=== PATIENT | female | born 1985 | race Caucasian/White ===

== ENCOUNTER 2016-07-10 10:24 | Outpatient (CLI) | payer BC | END 2016-07-10 10:25 | disposition home or self-care (01) | DX: E55.9 Vitamin D deficiency, unspecified (principal); R53.83 Other fatigue ==

== ENCOUNTER 2016-07-11 11:57 | Outpatient (CLI) | payer BC | END 2016-07-11 11:58 | disposition home or self-care (01) | DX: M53.3 Sacrococcygeal disorders, not elsewhere classified (principal) ==

== ENCOUNTER 2019-02-05 13:40 | Outpatient (CLI) | payer BC ==
--- NOTE | 2019-02-05 14:53 | Mammography Report ---
Reason: MASTODYNIA Procedure Date: 02/05/2019 Accession Number: [id number] / [id number] Procedure: ANDREIA - Diagnostic Dig Bilat CPT Code: FULL RESULT: EXAM: Diagnostic Dig Bilat with Noel DATE: 02/05/2019 2:39 PM CLINICAL HISTORY: Superior left breast pain. TECHNIQUE: (B) - Bilateral CC and MLO views were obtained. COMPARISON: None PARENCHYMAL PATTERN: (D) - The breasts demonstrate heterogeneously dense fibroglandular parenchyma bilaterally. FINDINGS: Special attention was given to the superior left breast which is unremarkable. There are no suspicious masses, calcifications, or areas of distortion. IMPRESSION: Negative examination. BI-RADS category 1. RECOMMENDATION: (ANNUAL) - Recommend routine annual screening mammography. BI-RADS CATEGORY: (1) - Negative. STANDARD QUALIFYING STATEMENTS: 1. This examination was not reviewed with the aid of Computer-Aided Detection (CAD). 2. A negative or benign imaging report should not preclude biopsy if clinically suspicious findings are present. 3. Dense breasts may obscure an underlying neoplasm. 4. This examination was reviewed with the aid of 3D breast imaging (tomosynthesis).
== END 2019-02-05 13:41 | disposition home or self-care (01) ==
LOC: DI 13:40
PROVIDERS: ATTEND Nurse Practitioner Family
DX: N64.4 Mastodynia (principal)
CPT/HCPCS: 77066

== ENCOUNTER 2020-09-06 09:13 | Outpatient (CLI) | payer OTHER ==
[2020-09-06 14:38] LABS: ALBUMIN 4.5 g/dL (3.2-5.5); ALBUMIN/GLOBULIN RATIO 1.5 (1.0-2.2); ALKALINE PHOSPHATASE 64 IU/L (42-121); ALT ALANINE AMINOTRANSFERASE 16 IU/L (10-60); AST ASPARTATE AMINOTRANSFERASE 21 IU/L (10-42); BILIRUBIN,TOTAL 0.7 mg/dL (0.2-1.0); BUN - BLOOD UREA NITROGEN 14 mg/dL (6-20); CALCIUM 9.3 mg/dL (8.5-10.3); CARBON DIOXIDE - CO2 27 mmol/L (21-32); CHLORIDE 108 mmol/L (101-111); CHOL/HDL RATIO 3.2 (<4.4); CHOLESTEROL 149 mg/dL; CREATININE 0.8 mg/dL (0.4-1.0); GFR - MDRD 81 (>89); GLUCOSE 89 mg/dL (70-100); HDL CHOLESTEROL 46 mg/dL; LDL CHOLESTEROL,CALCULATED 94 mg/dL; POTASSIUM 4.1 mmol/L (3.5-5.0); SODIUM 141 mmol/L (135-145); TOTAL PROTEIN 7.5 g/dL (6.7-8.2); TRIGLYCERIDES 43 mg/dL; VLDL CHOLESTEROL 9 mg/dL
[2020-09-06 14:50] LABS: BASOPHILS # (AUTO) 0.1 10^3/uL (0.0-0.1); BASOPHILS % (AUTO) 0.9 %; EOSINOPHILS # (AUTO) 0.1 10^3/uL (0.0-0.7); EOSINOPHILS % (AUTO) 1.4 %; HCT - HEMATOCRIT 44.6 % (37.0-47.0); HGB - HEMOGLOBIN 14.3 g/dL (12.0-16.0); LYMPHOCYTES % (AUTO) 36.1 %; MEAN CORPUSCULAR HEMOGLOBIN 27.9 pg (27.0-31.0); MEAN CORPUSCULAR HGB CONC 32.1 g/dL (32.0-36.0); MEAN CORPUSCULAR VOLUME 87.1 fL (81.0-99.0); MEAN PLATELET VOLUME 10.4 fL (7.9-10.8); MONOCYTES # (AUTO) 0.3 10^3/uL (0.0-1.0); MONOCYTES % (AUTO) 5.6 %; NEUTROPHILS # (AUTO) 3.1 10^3/uL (1.5-6.6); NEUTROPHILS % (AUTO) 55.8 %; PLT - PLATELET COUNT 248 10^3/uL (130-450); RED BLOOD COUNT 5.12 10^6/uL (4.20-5.40); WHITE BLOOD COUNT 5.5 x10^3/uL (4.8-10.8)
== END 2020-09-06 09:14 | disposition home or self-care (01) ==
LOC: LAB.S 09:13
PROVIDERS: ATTEND Nurse Practitioner Family
DX: Z00.00 Encounter for general adult medical examination without abnormal findings (principal); E55.9 Vitamin D deficiency, unspecified; E78.5 Hyperlipidemia, unspecified
CPT/HCPCS: 36415; 80053; 80061; 82306; 82728; 83721; 85025

== ENCOUNTER 2020-09-23 10:54 | Outpatient (CLI) | payer OTHER ==
--- NOTE | 2020-09-24 09:12 | Mammography Report ---
BILATERAL DIGITAL SCREENING MAMMOGRAM 3D/2D: 09/23/2020 CLINICAL: Routine screening. Comparison is made to exam dated: 02/05/2019 mammogram - [facility]. The tissue of both breasts is heterogeneously dense. This may lower the sensitivity of mammography. No significant masses, calcifications, or other findings are seen in either breast. There has been no significant interval change. IMPRESSION: NEGATIVE There is no mammographic evidence of malignancy. A 1 year screening mammogram is recommended. This exam was interpreted at Station ID: [id number]. NOTE: For mammograms, a report in lay terms will be sent to the patient. Approximately 15% of breast malignancies will not be visualized mammographically. In the management of a palpable breast mass, a negative mammogram must not discourage biopsy of a clinically suspicious lesion. Electronically Signed By: Umair Jules M.D. aty/penrad:09/23/2020 18:16:34 ACR BI-RADS Category 1: Negative 3341F PARENCHYMAL PATTERN: (D) - The breast(s) demonstrate(s) heterogeneously dense fibroglandular clemente banks. BI-RADS CATEGORY: (1) - 1 RECOMMENDATION: (ANNUAL) - Recommend routine annual screening mammography. [id number] 1 year screening LATERALITY: (B)
== END 2020-09-23 10:55 | disposition home or self-care (01) ==
LOC: DI 10:54
PROVIDERS: ATTEND Nurse Practitioner Family
DX: Z12.31 Encounter for screening mammogram for malignant neoplasm of breast (principal)

== ENCOUNTER 2021-09-21 12:33 | Outpatient (CLI) | payer OTHER ==
--- NOTE | 2021-09-21 14:49 | XRAY Report ---
PROCEDURE: Chest 2 View X-Ray INDICATIONS: DYSPNEA TECHNIQUE: 2 view(s) of the chest. COMPARISON: None. FINDINGS: Surgical changes and devices: None. Lungs and pleura: No pleural effusions or pneumothorax. Lungs are clear. Mediastinum: Mediastinal contours are normal. Heart size is normal. Bones and chest wall: No suspicious bony abnormalities. Soft tissues appear unremarkable. IMPRESSION: No acute cardiopulmonary abnormality. Normal chest x-ray. Reviewed by: Marcial Bateman on 09/21/2021 2:48 PM PDT Approved by: Marcial Bateman on 09/21/2021 2:48 PM PDT Station ID: [id number]
== END 2021-09-21 12:34 | disposition home or self-care (01) ==
LOC: DI.S 12:33
PROVIDERS: ATTEND Physician Assistant
DX: R06.00 Dyspnea, unspecified (principal)

== ENCOUNTER 2021-10-20 15:50 | Outpatient (CLI) | payer OTHER ==
--- NOTE | 2021-10-21 16:14 | Ultrasound Report ---
PROCEDURE: Retroperitoneal INDICATIONS: BACK PAIN WITH URINARY URGENCY TECHNIQUE: Real-time scanning was performed of the retroperitoneal organs, with image documentation. COMPARISON: None. FINDINGS: Kidneys: Kidneys are normal in size. Right kidney measures 10.2 cm long; left kidney measures 11.4 cm long. Right renal cortical thickness is 1.2 cm; left renal cortical thickness is 1.7 cm. No kendal d masses, hydronephrosis, or nephrolithiasis. Bladder: Pre-void bladder volume is 445 mL. Post-void residual is 7 mL. Pre-void images demonstrat e no intraluminal masses or stones. On pre-void images, bilateral ureteral jets are noted with color Doppler interrogation. (Of note, ureteral jets may not be detectable in up to 25% of cases due to i nsufficient differences in specific gravity between ureteral and bladder urine). Miscellaneous: No free abdominal fluid. IMPRESSION: Unremarkable exam. Reviewed by: Bharti Lindsay MD on 10/21/2021 4:12 PM PDT Approved by: Bharti Lindsay MD on 10/21/2021 4:12 PM PDT Station ID: [id number]
== END 2021-10-20 15:51 | disposition home or self-care (01) ==
LOC: DI 15:50
PROVIDERS: ATTEND Naturopath
DX: R31.9 Hematuria, unspecified (principal)

== ENCOUNTER 2022-08-19 04:38 | Outpatient (CLI) | payer OTHER | END 2022-08-19 23:59 | disposition critical access hospital (66) | LOC: EMS 04:38 | DX: M79.602 Pain in left arm (principal); M79.605 Pain in left leg; R53.1 Weakness | CPT/HCPCS: A0425; A0429 ==

== ENCOUNTER 2022-08-19 05:02 | Emergency (ER) | payer OTHER ==
[2022-08-19] MEDS ORDERED: SODIUM CHLORIDE 0.9% 1,000 ML IV STA (05:21)
--- OUTSIDE RECORDS SUMMARY | 2022-08-19 05:27 | EXTERNAL MEDICAL SUMMARY RPT | Continuity of Care Document ---
:1985 Author Organization [facility] Address [address] [place] [address] Phone Care Team Providers Name Role Phone Unavailable Unavailable Unavailable Kulwinder Carpenter Md Unavailable Unavailable Allergies and Intolerances date description facility type (no date) AMOXICILLIN [facility] [place] Encounters No information. Functional Status No information. Immunizations No information. Medications date description facility 2022-07-25 00:00 methylprednisolone [facility] 2022-07-24 00:00 doxycycline monohydrate [facility] 2022-07-24 00:00 doxycycline monohydrate [facility] 2022-07-25 00:00 methylprednisolone [facility] [place] 2022-07-25 00:00 methylprednisolone [facility] [place] 2022-07-24 00:00 doxycycline monohydrate [facility] [place] 2022-07-24 00:00 doxycycline monohydrate [facility] [place] 2022-07-25 00:00 methylprednisolone [facility] [place] Problems date description facility 2022-07-24 00:00 Maxillary sinusitis [facility] [place] 2022-07-24 00:00 Chronic maxillary sinusitis [facility] [place] Procedures date description facility 2022-07-24 00:00 Visit Code Hold [facility] [place] Results/Labs No information. Social History date description facility 2022-07-24 00:00 Never smoker [facility] [place] Vital Signs date measurement value units 2022-07-24 00:00 BMI 35.24 kg/m2 2022-07-24 00:00 BP_diastolic 72 mmHg 2022-07-24 00:00 BP_systolic 120 mmHg 2022-07-24 00:00 heart_rate 72 /min 2022-07-24 00:00 height_metric 157.48 cm 2022-07-24 00:00 height_standard 62 in 2022-07-24 00:00 temperature_metric 36.83 C 2022-07-24 00:00 temperature_standard 98.3 F 2022-07-24 00:00 weight_metric 87.09 kg 2022-07-24 00:00 weight_standard 192 lb
--- NOTE | 2022-08-19 05:37 | ED Physician Documentation ---
History of Present Illness - Stated complaint Stated Complaint: LEFT SIDE PAIN - Chief complaint Chief Complaint: General - History obtained from History obtained from: Patient - Additonal information Additional information: Patient is a 37-year-old female presenting for evaluation of pain in her left arm that she has noticed since 1:00 this morning. Patient states that she stays up late reading on her phone and sometimes gets pains in her hands from the way she is holding her phone. Around 1:00 she started having a deep aching sensation in the left forearm and thought maybe she just needed to go to sleep and put her things away and went to sleep for a few hours. She states that she usually sleeps on her stomach with her arms outstretched. When she woke up around 430 she continued to have some pain in the left arm. She was able to walk to the bathroom.But she had a brief episode where the pain felt like it was shooting into her leg which concerned her. She then woke up her for help who called 911.When she reports having severe pain in the arm she states she was having trouble with her gerontological nurse practitioner but this was only in the setting of pain. She continues to have some pain in her left arm. She denies known trauma or injury. Paramedics have not noticed any weakness and their stroke assessment has remained negative through their transport.Patient denies any chest pain, shortness of breath, concerns for .She denies any numbness or paresthesias.She denies headache. She does not take a blood thinner. Review of Systems Constitutional: denies: Fever Cardiac: denies: Chest pain / pressure Respiratory: denies: Dyspnea GI: denies: Abdominal Pain Musculoskeletal: reports: Extremity pain Neurologic: denies: Headache PD PAST MEDICAL HISTORY - Past Medical History Respiratory: Asthma - Past Surgical History Past Surgical History: No - Present Medications Home Medications: Ambulatory Orders Medication Instructions Recorded Confirmed Acyclovir [Zovirax] 100 mg PO ONCE 09/04/13 09/04/13 Cetirizine [ZyrTEC] 10 mg PO DAILY 09/04/13 09/04/13 Montelukast [Singulair] 10 PO DAILY 09/04/13 09/04/13 Norethindrone-Ethinyl Estrad 1 each PO DAILY 09/04/13 09/04/13 [Cyclafem] - Allergies Allergies/Adverse Reactions: Allergies Allergy/AdvReac Type Severity Reaction Status Date / Time ciprofloxacin [From Cipro] Allergy Intermediate rash, Verified 09/04/13 19:56 vomiting ciprofloxacin HCl * Allergy Intermediate rash, Verified 09/04/13 19:56 [From Cipro] vomiting doxycycline Allergy Intermediate rash, Verified 09/04/13 19:57 vomiting amoxicillin Allergy Mild Rash Uncoded 08/19/22 05:13 - Social History Does the pt smoke?: No Smoking Status: Never smoker Does the pt drink ETOH?: Yes Does the pt have substance abuse?: No - Immunizations Immunizations are current?: Yes - POLST Patient has POLST: No PD ED PE NORMAL - General General: Alert and oriented X 3, No acute distress, Well developed/nourished - HEENT HEENT: Atraumatic, PERRL, EOMI, Moist mucous membranes, Pharynx benign - Neck Neck: Supple, no meningeal sign, No bony TTP - Cardiac Cardiac: RRR, No murmur, Strong equal pulses - Respiratory Respiratory: No respiratory distress, Clear bilaterally - Abdomen Abdomen: Soft, Non tender, Non distended - Derm Derm: Warm and dry - Extremities Extremities: No deformity, No tenderness to palpate, Normal ROM s pain, No calf tenderness / cord - Neuro Neuro: Alert and oriented X 3, home sales consultant 2-12 intact, No motor deficit (Including symmetric gerontological nurse practitioner strength), No sensory deficit, Normal speech, Other (Normal gait) Eye Opening: Spontaneous Motor: Obeys Commands Verbal: Oriented GCS Score: 15 Results - Vitals Vitals: Vital Signs - 24 hr 08/19/22 08/19/22 05:10 06:26 Temperature 36.2 C L Heart Rate 93 84 Respiratory 15 18 Rate Blood Pressure 135/77 H 128/62 O2 Saturation 100 99 Oxygen O2 Source Room air - EKG (time done) 0534 EKG releavant findings:: EKG personally interpreted by author of this note. Relevant findings are: Rate 83, normal sinus rhythm, no STEMI, QTc 425 Rate: Rate (enter#) (83) Rhythm: NSR Ischemia: No: ST elevation c/w ischemia Compare to prior EKG: Old EKG unavailable - Labs Labs: Laboratory Tests 08/19/22 08/19/22 08/19/22 05:33 05:33 05:33 WBC 5.8 RBC 4.93 Hgb 13.5 Hct 42.1 MCV 85.4 MCH 27.4 MCHC 32.1 RDW 13.1 Plt Count 205 MPV 9.8 Neut # (Auto) 3.2 Lymph # (Auto) 2.0 Edgar # (Auto) 0.4 Eos # (Auto) 0.2 Baso # (Auto) 0.0 Absolute Nucleated RBC 0.00 Nucleated RBC % 0.0 Sodium 138 Potassium 3.5 Chloride 106 Carbon Dioxide 25 Anion Gap 7.0 BUN 13 Creatinine 0.8 Estimated GFR (MDRD) 80 L Glucose 110 H Calcium 8.4 L Total Bilirubin 0.6 AST 20 ALT 23 Alkaline Phosphatase 59 Troponin I High Sens < 2.3 L Total Protein 6.7 Albumin 3.8 Globulin 2.9 Albumin/Globulin Ratio 1.3 PD Medical Decision Making - ED course Complexity details: reviewed results, re-evaluated patient, d/w patient ED course: Patient is a 37-year-old female presenting for evaluation of pain in her left arm That started as she was Reading on her phone.She did have a period where she felt some shooting pain in her leg but this was brief and otherwise her symptoms have been isolated to the left arm. On exam as she has no deficits to suggest a stroke. She has strong pulses and no signs of swelling to suggest a clot.Bec ause the pain does radiate towards the chest we obtained an EKG I reviewed and see no signs of acute ischemia. CBC, chemistries and troponin were also obtained without any significant findings. Her symptoms have been present for at least 4 hours and I do not think a repeat troponin is necessary as ACS seems very very unlikely as she has not had any chest pain and this would be very atypical. PERC negative. Vital signs here have been stable. She has not developed any other symptoms here.She also has no bony tenderness and good range of motion at joints. I do not think an x-ray would be particularly helpful as she does not have trauma to suggest fracture or dislocation. There is no signs of infection. Discussed continued supportive care and patient is also advised on concerning symptoms to return for. Departure - Departure Disposition: 01 Home, Self Care Clinical Impression: Left arm pain Condition: Stable Instructions: ED Strain Muscle Ext Comments: The cause of your arm pain remains unclear at this time. It could just be a strain From positioning when you were reading or sleeping. Your labs are reassuring including a marker that looks at your heart. I would recommend continuing with an anti-inflammatory medication such as acetaminophen or ibuprofen along with heat versus ice depending on if 1 feels better than the other. I would recommend close follow-up with your primary care doctor. Please return to the emergency department if you develop any weakness, trouble speaking, numbness or have any new concerns. Discharge Date/Time: 08/19/22 06:27
[2022-08-19 05:38] LABS: BASOPHILS % (AUTO) 0.5 %; EOSINOPHILS # (AUTO) 0.2 10^3/uL (0.0-0.7); EOSINOPHILS % (AUTO) 2.8 %; HCT - HEMATOCRIT 42.1 % (37.0-47.0); HGB - HEMOGLOBIN 13.5 g/dL (12.0-16.0); LYMPHOCYTES % (AUTO) 35.2 %; MEAN CORPUSCULAR HEMOGLOBIN 27.4 pg (27.0-31.0); MEAN CORPUSCULAR HGB CONC 32.1 g/dL (32.0-36.0); MEAN CORPUSCULAR VOLUME 85.4 fL (81.0-99.0); MEAN PLATELET VOLUME 9.8 fL (7.9-10.8); MONOCYTES # (AUTO) 0.4 10^3/uL (0.0-1.0); MONOCYTES % (AUTO) 6.4 %; NEUTROPHILS # (AUTO) 3.2 10^3/uL (1.5-6.6); NEUTROPHILS % (AUTO) 55.1 %; PLT - PLATELET COUNT 205 10^3/uL (130-450); RED BLOOD COUNT 4.93 10^6/uL (4.20-5.40); RED CELL DISTRIBUTION WIDTH 13.1 % (12.0-15.0); WHITE BLOOD COUNT 5.8 x10^3/uL (4.8-10.8)
[2022-08-19 05:51] LABS: ALBUMIN 3.8 g/dL (3.2-5.5); ALBUMIN/GLOBULIN RATIO 1.3 (1.0-2.2); BILIRUBIN,TOTAL 0.6 mg/dL (0.2-1.0); CALCIUM 8.4 mg/dL (8.5-10.3); CREATININE 0.8 mg/dL (0.4-1.0); POTASSIUM 3.5 mmol/L (3.5-5.0); TOTAL PROTEIN 6.7 g/dL (6.7-8.2)
[2022-08-19 06:26] VITALS: BP 128/62
== END 2022-08-19 06:27 | disposition home or self-care (01) ==
LOC: EDUNIT# → ED 05:02
DX: M79.602 Pain in left arm (principal)
CPT/HCPCS: 36415; 80053; 84484; 85025; 93005; 99283

== ENCOUNTER 2023-08-23 14:58 | Outpatient (CLI) | payer OTHER ==
--- NOTE | 2023-08-23 23:36 | XRAY Report ---
PROCEDURE: Chest 2V INDICATIONS: BRONCHITIS TECHNIQUE: 2 views of the chest were acquired. COMPARISON: CXR 09/21/2021. FINDINGS: Surgical changes and devices: None. Lungs and pleura: No pleural effusions or pneumothorax. Lungs are clear. Mediastinum: Mediastinal contours appear normal. Heart size is normal. Bones and chest wall: No suspicious bony lesions. Small vertebral body osteophytes. Overlying soft t issues appear unremarkable. IMPRESSION: No acute cardiopulmonary process identified. Reviewed by: Scout Concepcion MD on 08/23/2023 11:35 PM PDT Approved by: Scout Concepcion MD on 08/23/2023 11:35 PM PDT Station ID: [id number]
== END 2023-08-23 14:59 | disposition home or self-care (01) ==
LOC: DI.S 14:58
PROVIDERS: ATTEND Physician Assistant Medical
DX: J40 Bronchitis, not specified as acute or chronic (principal)

== ENCOUNTER 2023-11-26 07:00 | Outpatient (CLI) | payer OTHER | END 2023-11-26 23:59 | disposition home or self-care (01) | LOC: LAB.S 07:00 | PROVIDERS: ATTEND Emergency Medicine | DX: S41.152A Open bite of left upper arm, initial encounter (principal) | CPT/HCPCS: 87070; 87077; 87181; 87205 ==

== ENCOUNTER 2024-01-31 10:29 | Outpatient (CLI) | payer OTHER ==
--- NOTE | 2024-02-01 16:07 | Mammography Report ---
BILATERAL DIGITAL SCREENING MAMMOGRAM 3D/2D WITH EXAGGERATED CC: 01/31/2024 CLINICAL: Routine screening. Family history of breast cancer. Comparison is made to exams dated: 12/13/2021 mammogram, 09/23/2020 mammogram, and 02/05/2019 mammogram - [facility]. The breasts are heterogeneously dense, which may obscure small masses (category c / 51-75% glandular tissue). No significant masses, calcifications, or other findings are seen in either breast. There has been no significant interval change. IMPRESSION: NEGATIVE There is no mammographic evidence of malignancy. A 1 year screening mammogram is recommended. Based on Tyrer-Cuzick model (a risk assessment model), the patient's lifetime risk is 32.6% and her 1 0 year risk is 4.5%. If a patient has an elevated risk, a more comprehensive evaluation should be con sidered and/or a referral to a genetic counselor. The [place] [employer], [employer], and NCCN Guidelines advise the consideration of Breast MRI as an adjunct to screening mammog salazar in patients whose "Lifetime risk to develop breast cancer" is 20% or higher. This exam was interpreted at Station ID: [id number]. NOTE: For mammograms, a report in lay terms will be sent to the patient. Approximately 15% of breast malignancies will not be visualized mammographically. In the management of a palpable breast mass, a negative mammogram must not discourage biopsy of a clinically suspicious lesion. Electronically Signed By: Grace Pompa M.D., Ph.D. tania/any:02/01/2024 10:00:53 letter sent: No_Letter ACR BI-RADS Category 1: Negative PARENCHYMAL PATTERN: (D) - The breast(s) demonstrate(s) heterogeneously dense fibroglandular clemente banks. BI-RADS CATEGORY: (1) - 1 RECOMMENDATION: (ANNUAL) - Recommend routine annual screening mammography. [id number] 1 year screening LATERALITY: (B)
== END 2024-01-31 10:30 | disposition home or self-care (01) ==
LOC: DI.S 10:29
DX: Z12.31 Encounter for screening mammogram for malignant neoplasm of breast (principal); R92.333 Mammographic heterogeneous density, bilateral breasts; Z80.3 Family history of malignant neoplasm of breast